=== PATIENT | female | born 2000 | race American Indian/Alaskan Native ===

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

== ENCOUNTER 2022-04-16 08:40 | Inpatient (IN) | payer SELFPAY ==
[2022-04-16 09:54] LABS: Basophils % (Auto) 0.3 % (0.0-1.8); Hematocrit 34.8 % (30.3-42.9); Hemoglobin 12.2 gm/dl (10.1-14.3); Lymphocytes # (Auto) 4.3 K/mm3 (1.2-5.4); Lymphocytes % (Auto) 26.5 % (13.4-35.0); Mean Corpuscular HGB Conc 35 % (30-34); Mean Corpuscular Volume 86 fl (79-97); Monocytes # (Auto) 1.2 K/mm3 (0.0-0.8); Monocytes % (Auto) 7.1 % (0.0-7.3); Platelet Count 334 K/mm3 (140-440); Red Blood Count 4.03 M/mm3 (3.65-5.03); Red Cell Distribution Width 14.2 % (13.2-15.2)
[2022-04-16 09:58] LABS: Alanine Aminotransferase 10 units/L (7-56); Albumin 4.3 g/dL (3.9-5); Blood Urea Nitrogen 9 mg/dL (7-17); Calcium 9.3 mg/dL (8.4-10.2); Hemolysis Index 2
[2022-04-16 09:59] LABS: BUN/Creatinine Ratio 13
[2022-04-16 10:25] LABS: Color,Urine Yellow (Yellow)
[2022-04-16 10:31] LABS: Amorphous Crystals,Urine 1+; Bacteria,Urine 2+ /HPF (Negative); Mucus,Urine 3+ /HPF
[2022-04-16] MEDS ORDERED: SODIUM CHLORIDE 0.9% 1000 ML 1,000 ML IV ONE (10:46)
[2022-04-16] MEDS ORDERED: ONDANSETRON 4 MG/2 ML INJ IV ONE ×2 (10:46→15:34)
[2022-04-16] MEDS ORDERED: MORPHINE 4 MG/1 ML INJ IV ONE (10:46)
--- NOTE | 2022-04-16 11:49 | Cat Scan Report ---
CT ABDOMEN AND PELVIS WITH CONTRAST INDICATION / CLINICAL INFORMATION: abd pain with n/v. TECHNIQUE: Axial CT images were obtained through the abdomen and pelvis after IV contrast. All CT sc ans at this location are performed using CT dose reduction for ALARA by means of automated exposure c ontrol. COMPARISON: CT dated 05/04/2019 FINDINGS: LOWER CHEST: No significant abnormality. LIVER: No significant abnormality. GALLBLADDER: No significant abnormality. BILE DUCTS: No significant abnormality. PANCREAS: No significant abnormality. SPLEEN: No significant abnormality. ADRENALS: No significant abnormality. RIGHT KIDNEY / URETER: No significant abnormality. LEFT KIDNEY / URETER: No significant abnormality. STOMACH / SMALL BOWEL: No significant abnormality. COLON: Inflammatory changes adjacent to the rectum and sigmoid colon are likely reactive from adjacen t pelvic organ inflammation. APPENDIX: No significant abnormality. PERITONEUM: Pelvic peritonitis detailed below. LYMPH NODES: Retroperitoneal and iliac chain lymphadenopathy, for example left periaortic lymph node measures 1.2 cm in short axis on image 73 series 2. AORTA / ARTERIES: No significant abnormality. IVC / VEINS: No significant abnormality. URINARY BLADDER: Inflammatory changes adjacent to the urinary bladder. REPRODUCTIVE ORGANS: Thick walled peripherally enhancing tubular structures in the bilateral adnexa w ith inflammatory stranding and fluid. Fluid demonstrates a thin rim of peripheral enhancement. ADDITIONAL FINDINGS: None. SKELETAL SYSTEM: No significant abnormality. IMPRESSION: 1. Bilateral pyosalpinx with pelvic peritonitis and likely developing tubo-ovarian abscess. 2. Lymphadenopathy is likely reactive. Signer Name: Waldo Yoo MD Signed: 04/16/2022 11:45 AM Workstation Name: [employer]
[2022-04-16] MEDS ORDERED: PIPERACILLIN/TAZOBACTAM 3.375 3.375 GM/50 ML BAG IV ONE (11:58)
--- NOTE | 2022-04-16 14:16 | Ultrasound Report ---
ULTRASOUND PELVIS INDICATION / CLINICAL INFORMATION: pelvic/abd pain r/o tubo-ovarian abscess. TECHNIQUE: Transabdominal and Transvaginal. Duplex Color Doppler used: Yes. COMPARISON: Same day CT FINDINGS: UTERUS: - Appearance: No significant abnormality. - Size (cm): 7.4 x 3.5 x 4.9 - Endometrial Complex (if present): No significant abnormality.. Thickness in cm (if measured) = 0.4 - Mass or cyst: None. - Additional findings: None. RIGHT ADNEXA: 5.0 x 3.2 x 3.7 cm. Normal color Doppler blood flow. Physiologic cyst measures 1.6 cm. LEFT ADNEXA: 5.7 x 3.8 x 3.7 cm Normal color Doppler blood flow. Complex mildly hypoechoic lesion jayesh tered within the left ovary measures 4.3 x 2.2 x 2.5. URINARY BLADDER: No significant abnormality. FREE FLUID: Moderate volume complex free fluid. ADDITIONAL FINDINGS: Bilateral hydrosalpinx better appreciated on CT. IMPRESSION: 1. Bilateral pyosalpinx with pelvic peritonitis. Pelvic peritonitis demonstrates complex septations. 2. Left ovary is enlarged and contains an internally mildly hypoechoic lesion, which in the setting o f pyosalpinx is concerning for tubo-ovarian abscess. Hemorrhagic cyst is another possibility. Signer Name: Waldo Yoo MD Signed: 04/16/2022 2:12 PM Workstation Name: [employer]
--- NOTE | 2022-04-16 14:22 | Emergency Department Report ---
ED Abdominal Pain HPI - General Chief Complaint: Abdominal Pain Stated Complaint: STOMACH PAIN/INDIGESTION Time Seen by Provider: 04/16/22 10:27 Source: patient Mode of arrival: Ambulatory Limitations: No Limitations - History of Present Illness Initial Comments: This is a 22-year-old female nontoxic, well nourished in appearance, no acute signs of distress presents to the ED with c/o of nausea and vomiting and abdominal pain several days. Patient describes vomiting as food content and yellow gastric acid. Patient describes abdominal pain as cramping and aching with level of 8/10 diffuse. Stated has some abdominal distention. Patient denies chest pain, short of breath, fever, hemoptysis, blood in stool, chills, headache, stiff neck, numbness or tingling. Patient denies any diarrhea or constipation. Denies any blood in stool. Patient denies any recent travels. MD Complaint: abdominal pain -: days(s) Location: diffuse Radiation: none Severity: moderate Severity scale (0 -10): 8 Quality: aching Consistency: constant Improves With: nothing Worsens With: nothing Associated Symptoms: nausea, vomiting. denies: diarrhea, fever, chills, constipation, dysuria, hematemesis, hematochezia, melena, hematuria, anorexia, syncope - Related Data Previous Rx's Medication Instructions Recorded Last Taken Type HYDROcodone/APAP 5-325 [[place] 1 - 2 each PO Q4HR PRN #20 tablet 05/05/19 Unknown Rx 5/325] levoFLOXacin [Levaquin] 750 mg PO QDAY #7 tablet 05/12/19 Unknown Rx levoFLOXacin [Levaquin] 750 mg PO QDAY 7 Days #7 tablet 05/12/19 Unknown Rx Allergies Allergy/AdvReac Type Severity Reaction Status Date / Time Latex, Natural Rubber Allergy Hives Verified 04/16/22 08:43 vancomycin AdvReac Hives Verified 04/16/22 08:43 ED Review of Systems ROS: Stated complaint: STOMACH PAIN/INDIGESTION Other details as noted in HPI Constitutional: denies: chills, fever Eyes: denies: eye pain, eye discharge, vision change ENT: denies: ear pain, throat pain Respiratory: denies: cough, shortness of breath, wheezing Cardiovascular: denies: chest pain, palpitations Endocrine: no symptoms reported Gastrointestinal: abdominal pain, nausea, vomiting. denies: diarrhea, constipation, hematemesis, melena, hematochezia Genitourinary: denies: urgency, dysuria, discharge Musculoskeletal: denies: back pain, joint swelling, arthralgia Skin: denies: rash, lesions Neurological: denies: headache, weakness, paresthesias Psychiatric: denies: anxiety, depression Hematological/Lymphatic: denies: easy bleeding, easy bruising ED Past Medical Hx - Past Medical History Previous Medical History?: No - Social History Smoking Status: Current Every Day Smoker Substance Use Type: Marijuana - Medications Home Medications: Home Medications Medication Instructions Recorded Confirmed Last Taken Type HYDROcodone/APAP 5-325 [[place] 1 - 2 each PO Q4HR PRN #20 tablet 05/05/19 Unknown Rx 5/325] levoFLOXacin [Levaquin] 750 mg PO QDAY #7 tablet 05/12/19 Unknown Rx levoFLOXacin [Levaquin] 750 mg PO QDAY 7 Days #7 tablet 05/12/19 Unknown Rx ED Physical Exam - General Limitations: No Limitations General appearance: alert, in no apparent distress - Head Head exam: Present: atraumatic, normocephalic - Eye Eye exam: Present: normal appearance - Neck Neck exam: Present: normal inspection, full ROM. Absent: lymphadenopathy - Respiratory Respiratory exam: Present: normal lung sounds bilaterally. Absent: respiratory distress, wheezes, rales, rhonchi, stridor, chest wall tenderness, accessory muscle use, decreased breath sounds, prolonged expiratory - Cardiovascular Cardiovascular Exam: Present: normal rhythm, tachycardia, normal heart sounds. Absent: irregular rhythm, systolic murmur, diastolic murmur, rubs, gallop - GI/Abdominal GI/Abdominal exam: Present: distended, tenderness (diffuse), normal bowel sounds. Absent: guarding, rebound, rigid, diminished bowel sounds - Extremities Exam Extremities exam: Present: full ROM - Back Exam Back exam: Present: normal inspection, full ROM. Absent: tenderness, CVA tenderness (R), CVA tenderness (L), muscle spasm, paraspinal tenderness, vertebral tenderness, rash noted - Neurological Exam Neurological exam: Present: alert, oriented X3, normal gait - Psychiatric Psychiatric exam: Present: normal affect, normal mood - Skin Skin exam: Present: warm, dry, intact, normal color. Absent: rash ED Course Vital Signs 04/16/22 08:46 Temperature 99.0 F Pulse Rate 111 H Respiratory 20 Rate Blood Pressure 122/80 O2 Sat by Pulse 98 Oximetry - Reevaluation(s) Reevaluation #1: 04/16/22 14:22 Patient is speaking in full sentences with no signs of distress noted. - Consultations Consultation #1: 04/16/22 14:28 Patient has been consulted with Dr. Mccarty (OBGYN) about patient history, physical exam, and labs/imaging studies and accepts patient to services with Rocephin, Azith, and clinda to be added as antibiotics and admit to mother/baby unit. ED Medical Decision Making - Lab Data Result diagrams: 04/16/22 09:20 04/16/22 09:20 Lab Results 04/16/22 04/16/22 04/16/22 Range/Units 09:08 09:20 09:20 WBC 16.4 H (4.5-11.0) K/mm3 RBC 4.03 (3.65-5.03) M/mm3 Hgb 12.2 (10.1-14.3) gm/dl Hct 34.8 (30.3-42.9) % MCV 86 (79-97) fl MCH 30 (28-32) pg MCHC 35 H (30-34) % RDW 14.2 (13.2-15.2) % Plt Count 334 (140-440) K/mm3 Lymph % (Auto) 26.5 (13.4-35.0) % [place] % (Auto) 7.1 (0.0-7.3) % Eos % (Auto) 0.0 (0.0-4.3) % Baso % (Auto) 0.3 (0.0-1.8) % Lymph # (Auto) 4.3 (1.2-5.4) K/mm3 [place] # (Auto) 1.2 H (0.0-0.8) K/mm3 Eos # (Auto) 0.0 (0.0-0.4) K/mm3 Baso # (Auto) 0.0 (0.0-0.1) K/mm3 Seg Neutrophils % 66.1 (40.0-70.0) % Seg Neutrophils # 10.8 H (1.8-7.7) K/mm3 Sodium 135 L (137-145) mmol/L Potassium 3.4 L (3.6-5.0) mmol/L Chloride 98.9 (98-107) mmol/L Carbon Dioxide 20 L (22-30) mmol/L Anion Gap 20 mmol/L BUN 9 (7-17) mg/dL Creatinine 0.7 (0.6-1.2) mg/dL Estimated GFR > 60 ml/min BUN/Creatinine Ratio 13 % Glucose 166 H (65-100) mg/dL Calcium 9.3 (8.4-10.2) mg/dL Total Bilirubin 1.20 (0.1-1.2) mg/dL AST 15 (5-40) units/L ALT 10 (7-56) units/L Alkaline Phosphatase 78 (35-129) units/L Total Protein 7.8 (6.3-8.2) g/dL Albumin 4.3 (3.9-5) g/dL Albumin/Globulin Ratio 1.2 % Lipase (13-60) units/L HCG, Qual (Negative) Urine Color Yellow (Yellow) Urine Turbidity Turbid (Clear) Specific [place] (Man) 1.027 (1.003-1.030) Ur Protein (Man) 1+ (Negative) mg/dL Ur Ketones (Man) 5mg/dl (Negative) Ur Nitrite (Man) Negative (Negative) Urine Bilirubin (Man) Negative (Negative) Urine Ictotest Not Reportable Leukocyte Esterase (Man) Negative (Negative) Urine WBC (Auto) 2.0 (0.0-6.0) /HPF Urine RBC (Auto) 2.0 (0.0-6.0) /HPF U Epithel Cells (Auto) 1.0 (0-13.0) /HPF Urine Bacteria (Auto) 2+ (Negative) /HPF Urine RBC (Manual) Negative (Negative) Amorphous Crystals 1+ Urine Mucus 3+ /HPF 04/16/22 04/16/22 Range/Units 09:20 10:47 WBC (4.5-11.0) K/mm3 RBC (3.65-5.03) M/mm3 Hgb (10.1-14.3) gm/dl Hct (30.3-42.9) % MCV (79-97) fl MCH (28-32) pg MCHC (30-34) % RDW (13.2-15.2) % Plt Count (140-440) K/mm3 Lymph % (Auto) (13.4-35.0) % [place] % (Auto) (0.0-7.3) % Eos % (Auto) (0.0-4.3) % Baso % (Auto) (0.0-1.8) % Lymph # (Auto) (1.2-5.4) K/mm3 [place] # (Auto) (0.0-0.8) K/mm3 Eos # (Auto) (0.0-0.4) K/mm3 Baso # (Auto) (0.0-0.1) K/mm3 Seg Neutrophils % (40.0-70.0) % Seg Neutrophils # (1.8-7.7) K/mm3 Sodium (137-145) mmol/L Potassium (3.6-5.0) mmol/L Chloride (98-107) mmol/L Carbon Dioxide (22-30) mmol/L Anion Gap mmol/L BUN (7-17) mg/dL Creatinine (0.6-1.2) mg/dL Estimated GFR ml/min BUN/Creatinine Ratio % Glucose (65-100) mg/dL Calcium (8.4-10.2) mg/dL Total Bilirubin (0.1-1.2) mg/dL AST (5-40) units/L ALT (7-56) units/L Alkaline Phosphatase (35-129) units/L Total Protein (6.3-8.2) g/dL Albumin (3.9-5) g/dL Albumin/Globulin Ratio % Lipase 16 (13-60) units/L HCG, Qual Negative (Negative) Urine Color (Yellow) Urine Turbidity (Clear) Specific [place] (Man) (1.003-1.030) Ur Protein (Man) (Negative) mg/dL Ur Ketones (Man) (Negative) Ur Nitrite (Man) (Negative) Urine Bilirubin (Man) (Negative) Urine Ictotest Leukocyte Esterase (Man) (Negative) Urine WBC (Auto) (0.0-6.0) /HPF Urine RBC (Auto) (0.0-6.0) /HPF U Epithel Cells (Auto) (0-13.0) /HPF Urine Bacteria (Auto) (Negative) /HPF Urine RBC (Manual) (Negative) Amorphous Crystals Urine Mucus /HPF - Radiology Data [facility] [address] [place] [address] Cat Scan Report Signed Patient: WESLY FRIEND MR#: [id number] : 2000 Acct:[id number] Age/Sex: 22 / F ADM Date: 04/16/22 Loc: ED Attending Dr: Ordering Physician: JESSICA LI NP Date of Service: 04/16/22 Procedure(s): CT abdomen pelvis w con Accession Number(s): [id number] cc: JESSICA LI NP CT ABDOMEN AND PELVIS WITH CONTRAST INDICATION / CLINICAL INFORMATION: abd pain with n/v. TECHNIQUE: Axial CT images were obtained through the abdomen and pelvis after IV contrast. All CT scans at this location are performed using CT dose reduction for DAVID by means of automated exposure control. COMPARISON: CT dated 05/04/2019 FINDINGS: LOWER CHEST: No significant abnormality. LIVER: No significant abnormality. GALLBLADDER: No significant abnormality. BILE DUCTS: No significant abnormality. PANCREAS: No significant abnormality. SPLEEN: No significant abnormality. ADRENALS: No significant abnormality. RIGHT KIDNEY / URETER: No significant abnormality. LEFT KIDNEY / URETER: No significant abnormality. STOMACH / SMALL BOWEL: No significant abnormality. COLON: Inflammatory changes adjacent to the rectum and sigmoid colon are likely reactive from adjacent pelvic organ inflammation. APPENDIX: No significant abnormality. PERITONEUM: Pelvic peritonitis detailed below. LYMPH NODES: Retroperitoneal and iliac chain lymphadenopathy, for example left periaortic lymph node measures 1.2 cm in short axis on image 73 series 2. AORTA / ARTERIES: No significant abnormality. IVC / VEINS: No significant abnormality. URINARY BLADDER: Inflammatory changes adjacent to the urinary bladder. REPRODUCTIVE ORGANS: Thick walled peripherally enhancing tubular structures in the bilateral adnexa with inflammatory stranding and fluid. Fluid demonstrates a thin rim of per ipheral enhancement. ADDITIONAL FINDINGS: None. SKELETAL SYSTEM: No significant abnormality. IMPRESSION: 1. Bilateral pyosalpinx with pelvic peritonitis and likely developing tubo-ov ho abscess. 2. Lymphadenopathy is likely reactive. Signer Name: Pardeep Vázquez MD Signed: 04/16/2022 11:45 AM Workstation Name: [id number] Transcribed By: RHONDA Dictated By: PARDEEP VÁZQUEZ MD Electronically Authenticated By: PARDEEP VÁZQUEZ MD Signed Date/Time: 04/16/22 1145 DD/ 1136 TD/TT: [facility] [address] [place] [address] Ultrasound Report Signed Patient: WESLY FRIEND MR#: [id number] : 2000 Acct:[id number] Age/Sex: 22 / F ADM Date: 04/16/22 Loc: ED Attending Dr: Ordering Physician: JESSICA LI NP Date of Service: 04/16/22 Procedure(s): US transvaginal Accession Number(s): [id number] cc: JESSICA LI NP ULTRASOUND PELVIS INDICATION / CLINICAL INFORMATION: pelvic/abd pain r/o tubo-ovarian abscess. TECHNIQUE: Transabdominal and Transvaginal. Duplex Color Doppler used: Yes. COMPARISON: Same day CT FINDINGS: UTERUS: - Appearance: No significant abnormality. - Size (cm): 7.4 x 3.5 x 4.9 - Endometrial Complex (if present): No significant abnormality.. Thickness in cm (if measured) = 0.4 - Mass or cyst: None. - Additional findings: None. RIGHT ADNEXA: 5.0 x 3.2 x 3.7 cm. Normal color Doppler blood flow. Physiologic cyst measures 1.6 cm. LEFT ADNEXA: 5.7 x 3.8 x 3.7 cm Normal color Doppler blood flow. Complex mildly hypoechoic lesion centered within the left ovary measures 4.3 x 2.2 x 2.5. URINARY BLADDER: No significant abnormality. FREE FLUID: Moderate volume complex free fluid. ADDITIONAL FINDINGS: Bilateral hydrosalpinx better appreciated on CT. IMPRESSION: 1. Bilateral pyosalpinx with pelvic peritonitis. Pelvic peritonitis demonstrates complex septations. 2. Left ovary is enlarged and contains an internally mildly hypoechoic lesion, which in the setting of pyosalpinx is concerning for tubo-ovarian abscess. Hemorrhagic cyst is another possibility. Signer Name: Pardeep Vázquez MD Signed: 04/16/2022 2:12 PM Workstation Name: [id number] Transcribed By: RHONDA Dictated By: PARDEEP VÁZQUEZ MD Electronically Authenticated By: PARDEEP VÁZQUEZ MD Signed Date/Time: 04/16/22 1412 DD/ 1407 TD/TT: [facility] [address] [place] [address] Ultrasound Report Signed Patient: WESLY FRIEND MR#: [id number] : 2000 Acct:[id number] Age/Sex: 22 / F ADM Date: 04/16/22 Loc: ED Attending Dr: Ordering Physician: JESSICA LI NP Date of Service: 04/16/22 Procedure(s): US pelvic complete Accession Number(s): [id number] cc: JESSICA LI NP ULTRASOUND PELVIS INDICATION / CLINICAL INFORMATION: pelvic/abd pain r/o tubo-ovarian abscess. TECHNIQUE: Transabdominal and Transvaginal. Duplex Color Doppler used: Yes. COMPARISON: Same day CT FINDINGS: UTERUS: - Appearance: No significant abnormality. - Size (cm): 7.4 x 3.5 x 4.9 - Endometrial Complex (if present): No significant abnormality.. Thickness in cm (if measured) = 0.4 - Mass or cyst: None. - Additional findings: None. RIGHT ADNEXA: 5.0 x 3.2 x 3.7 cm. Normal color Doppler blood flow. Physiologic cyst measures 1.6 cm. LEFT ADNEXA: 5.7 x 3.8 x 3.7 cm Normal color Doppler blood flow. Complex mildly hypoechoic lesion centered within the left ovary measures 4.3 x 2.2 x 2.5. URINARY BLADDER: No significant abnormality. FREE FLUID: Moderate volume complex free fluid. ADDITIONAL FINDINGS: Bilateral hydrosalpinx better appreciated on CT. IMPRESSION: 1. Bilateral pyosalpinx with pelvic peritonitis. Pelvic peritonitis demonstrates complex septations. 2. Left ovary is enlarged and contains an internally mildly hypoechoic lesion, which in the setting of pyosalpinx is concerning for tubo-ovarian abscess. Hemorrhagic cyst is another possibility. Signer Name: Pardeep Vázquez MD Signed: 04/16/2022 2:12 PM Workstation Name: [id number] Transcribed By: RHONDA Dictated By: PARDEEP VÁZQUEZ MD Electronically Authenticated By: PARDEEP VÁZQUEZ MD Signed Date/Time: 04/16/22 1412 DD/ 06 TD/TT: - Medical Decision Making 22-year-old female that presents with tubo-ovarian abscess. Patient is stable and was examined by me. Labs has been obtained. Patient is notified of the imaging results with no questions noted by the patient. Patient placed on n.p.o. at this time. Patient admitted to mother-baby unit. IV antibiotics initiated. At time of admission and transfer, the patient does not seem toxic or ill in appearance. No acute signs of distress noted. Patient admission to discharge treatment plan of care. No further questions noted by the patient. Critical care attestation.: If time is entered above; I have spent that time in minutes in the direct care of this critically ill patient, excluding procedure time. ED Disposition Clinical Impression: Tubo-ovarian abscess, Peritonitis, Pelvic mass Disposition: ADMITTED INPATIENT Is pt being admited?: Yes Condition: Stable Instructions: Abdominal Pain (ED) Time of Disposition: 14:35
[2022-04-16] MEDS ORDERED: AZITHROMYCIN/NS 500 MG/250 ML 500 MG/250 ML BAG IV ONE (14:34)
[2022-04-16] MEDS ORDERED: HYDROmorphone 1 MG/1 ML INJ IV ONE (15:22)
--- NOTE | 2022-04-16 15:35 | Event Note ---
Date: 04/16/22 Alerted to patient about bilateral lower extremity TOA. Primary service/[employer] will attempt conservative care with IV antibiotics. If this fails, then may require percutaneous drainage.
[2022-04-16] MEDS ORDERED: METOCLOPRAMIDE 10 MG/2 ML INJ IV PRN (19:18)
[2022-04-16] MEDS ORDERED: NALOXONE 0.4 MG/1 ML INJ IV PRN ×2 (19:18→20:16)
[2022-04-16] MEDS ORDERED: HYDROcodone/ACETAMINOPHEN 5-325 MG TAB PO PRN ×2 (19:18→20:16)
[2022-04-16] MEDS ORDERED: IBUPROFEN 800 MG TAB PO PRN ×2 (19:18→20:16)
[2022-04-16] MEDS ORDERED: ACETAMINOPHEN 325 MG TAB PO PRN ×2 (19:18→20:16)
[2022-04-16] MEDS ORDERED: AZITHROMYCIN 250 MG TAB PO ONE (19:35)
--- NOTE | 2022-04-16 19:46 | History and Physical Report ---
History of Present Illness Date of examination: 04/16/22 Date of admission: 04/16/22 Chief complaint: pelvic pain x 1wk History of present illness: Pelvic and lower abd pains x 1wk. Last period was 2 weeks ago. Had exploratory laparoscopy in 2019 for tubeoavrian abscess. 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 BOARD LAYER History: other (PID) - Obstetrical History : 0 Para: 0 Medications and Allergies Allergies Allergy/AdvReac Type Severity Reaction Status Date / Time Latex, Natural Rubber Allergy Hives Verified 04/16/22 08:43 vancomycin AdvReac Hives Verified 04/16/22 08:43 Home Medications Medication Instructions Recorded Confirmed Last Taken Type HYDROcodone/APAP 5-325 [[place] 1 - 2 each PO Q4HR PRN #20 tablet 05/05/19 U nknown Rx 5/325] levoFLOXacin [Levaquin] 750 mg PO QDAY #7 tablet 05/12/19 Unknown Rx levoFLOXacin [Levaquin] 750 mg PO QDAY 7 Days #7 tablet 05/12/19 Unknown Rx Active Meds: Active Medications Acetaminophen (Acetaminophen 325 Mg Tab) 650 mg PO Q4H PRN PRN Reason: Pain, Mild (1-3) Hydrocodone Bitart/Acetaminophen (Hydrocodone/Acetaminophen 5-325 Mg Tab) 2 each PO Q6H PRN PRN Reason: Pain, Moderate (4-6) Azithromycin (Azithromycin 250 Mg Tab) 2,000 mg PO ONCE ONE; Protocol Stop: 04/16/22 19:36 Clindamycin HCl (Cleocin 900 Mg/50 Ml) 900 mg in 50 mls @ 100 mls/hr IV Q8H SANTI; Protocol Ibuprofen (Ibuprofen 800 Mg Tab) 800 mg PO Q8H PRN PRN Reason: Pain, Moderate (4-6) Metoclopramide HCl (Metoclopramide 10 Mg/2 Ml Inj) 10 mg IV Q6H PRN PRN Reason: Nausea And Vomiting Morphine Sulfate (Morphine 2 Mg/1 Ml Inj) 2 mg IV Q4H PRN PRN Reason: Pain, Moderate (4-6) Naloxone HCl (Naloxone 0.4 Mg/1 Ml Inj) 0.1 mg IV Q2MIN PRN PRN Reason: Res Rate </= 8 or 02 SAT < 92% Review of Systems All systems: negative Genitourinary: pelvic pain - Vital Signs Vital signs: Vital Signs Temp Pulse Resp BP Pulse Ox 99.0 F 111 H 20 122/80 98 04/16/22 08:46 04/16/22 08:46 04/16/22 08:46 04/16/22 08:46 04/16/22 08:46 Temp Pulse Resp BP Pulse Ox 98.3 F 92 H 19 107/60 100 04/16/22 10:07 04/16/22 18:31 04/16/22 18:31 04/16/22 18:31 04/16/22 10:25 - Physical Exam Lungs: Positive: Normal air movement Abdomen: Positive: tenderness, guarding Genitourinary (Female): Positive: other (Ultrasound exam found tubal disiease.) Uterus: Positive: normal size Extremities: Positive: normal Deep Tendon Reflex Grade: Normal +2 Results Result Diagrams: 04/16/22 09:20 04/16/22 09:20 Abnormal lab results 04/16/22 04/16/22 Range/Units 09:20 09:20 WBC 16.4 H (4.5-11.0) K/mm3 MCHC 35 H (30-34) % [place] # (Auto) 1.2 H (0.0-0.8) K/mm3 Seg Neutrophils # 10.8 H (1.8-7.7) K/mm3 Sodium 135 L (137-145) mmol/L Potassium 3.4 L (3.6-5.0) mmol/L Carbon Dioxide 20 L (22-30) mmol/L Glucose 166 H (65-100) mg/dL All other labs normal. Assessment and Plan - Patient Problems (1) Tubo-ovarian abscess Current Visit: Yes Status: Acute Plan to address problem: Admitted for antibiotics. Interventional radiological intervention/ surgical exploration are under consideration depnding on response to antibiotics rx.
[2022-04-16] MEDS ORDERED: AZITHROMYCIN 1 GM ORAL PWDR PACKET PO SCH (20:00)
[2022-04-16] MEDS ORDERED: MORPHINE 4 MG/1 ML INJ IV PRN (20:16)
[2022-04-17] MEDS: MORPHINE 2 MG/1 ML INJ IV PRN ×3 (02:44→11:04)
[2022-04-17 04:24] LABS: Hematocrit 35.3 % (30.3-42.9); Hemoglobin 11.8 gm/dl (10.1-14.3)
--- NOTE | 2022-04-17 08:28 | Progress Note ---
Assessment and Plan - Patient Problems (1) Tubo-ovarian abscess Current Visit: Yes Status: Acute Plan to address problem: Antibiotic rx to continue. Subjective Date of service: 04/17/22 Principal diagnosis: Pelvic infection Interval history: No new complaints. On antibiotics. Objective - Constitutional Vitals: Vital Signs - 12hr 04/16/22 04/16/22 04/16/22 20:31 20:41 20:51 Temperature Pulse Rate 95 H 97 H 97 H Respiratory 19 18 18 Rate Blood Pressure 129/70 129/70 123/62 Blood Pressure [Left] O2 Sat by Pulse Oximetry 04/16/22 04/16/22 04/16/22 21:01 21:11 21:21 Temperature Pulse Rate 96 H 95 H 98 H Respiratory 28 H 17 17 Rate Blood Pressure 129/61 129/61 121/60 Blood Pressure [Left] O2 Sat by Pulse Oximetry 04/16/22 04/16/22 04/16/22 21:30 21:40 21:45 Temperature 98.4 F Pulse Rate 95 H 94 H 78 Respiratory 18 16 18 Rate Blood Pressure 129/61 121/60 Blood Pressure 115/72 [Left] O2 Sat by Pulse 98 Oximetry 04/16/22 04/16/22 04/17/22 21:46 22:23 00:41 Temperature 99.1 F Pulse Rate 94 H 70 94 H Respiratory 16 20 Rate Blood Pressure 101/58 Blood Pressure 113/75 [Left] O2 Sat by Pulse 99 98 98 Oximetry 04/17/22 04/17/22 04/17/22 02:44 03:14 04:47 Temperature 98.3 F Pulse Rate 111 H Respiratory 22 18 20 Rate Blood Pressure 126/83 Blood Pressure [Left] O2 Sat by Pulse 98 Oximetry 04/17/22 04/17/22 06:23 06:53 Temperature Pulse Rate Respiratory 20 18 Rate Blood Pressure Blood Pressure [Left] O2 Sat by Pulse Oximetry General appearance: Present: no acute distress - Respiratory Respiratory effort: normal Extremities: pulses intact, No edema, normal color, Full ROM - Genitourinary Female genitourinary: deferred - Integumentary Integumentary: clear, warm, dry - Labs CBC & Chem 7: 04/17/22 03:56 04/16/22 09:20 Labs: Abnormal lab results 04/16/22 04/16/22 Range/Units 09:20 09:20 WBC 16.4 H (4.5-11.0) K/mm3 MCHC 35 H (30-34) % [place] # (Auto) 1.2 H (0.0-0.8) K/mm3 Seg Neutrophils # 10.8 H (1.8-7.7) K/mm3 Sodium 135 L (137-145) mmol/L Potassium 3.4 L (3.6-5.0) mmol/L Carbon Dioxide 20 L (22-30) mmol/L Glucose 166 H (65-100) mg/dL Medications & Allergies - Medications Allergies/Adverse Reactions: Allergies Latex, Natural Rubber Allergy (Verified 04/16/22 08:43) Hives vancomycin Adverse Reaction (Verified 04/16/22 08:43) Hives Home Medications: Home Medications Medication Instructions Recorded Confirmed Last Taken Type HYDROcodone/APAP 5-325 [[place] 1 - 2 each PO Q4HR PRN #20 tablet 05/05/19 04/16/22 Unknown Rx 5/325] levoFLOXacin [Levaquin] 750 mg PO QDAY #7 tablet 05/12/19 04/16/22 Unknown Rx levoFLOXacin [Levaquin] 750 mg PO QDAY 7 Days #7 tablet 05/12/19 04/16/22 Unknown Rx Active Medications: Generic Name Dose Route Start Last Admin Trade Name Noéq PRN Reason Stop Dose Admin Clindamycin HCl 900 mg in 50 mls @ 100 mls/hr 04/16/22 20:00 04/17/22 06:12 Cleocin 900 Mg/50 Ml IV 100 mls/hr Q8H SANTI Administration Protocol Metoclopramide HCl 10 mg 04/16/22 19:18 04/17/22 02:44 Metoclopramide 10 Mg/2 Ml Inj IV 10 mg Q6H PRN Administration Nausea And Vomiting Morphine Sulfate 2 mg 04/16/22 19:18 04/17/22 06:23 Morphine 2 Mg/1 Ml Inj IV 2 mg Q4H PRN Administration Pain, Moderate (4-6)
[2022-04-17] MEDS ORDERED: ACETAMINOPHEN 325 MG TAB PO PRN (20:36)
[2022-04-18 12:10] VITALS: BP 138/86
--- NOTE | 2022-04-18 12:35 | Progress Note ---
Assessment and Plan - Patient Problems (1) Tubo-ovarian abscess Current Visit: Yes Status: Acute Plan to address problem: Improving with antibiotics. To continue antibiotic course as an outpatient. Patient told to follow up with own MU[employer] INST[employer]ER in 1week or prn for a reevaluation, including repeat pelvic imaging. Tuboovarian infections may compromise the the structures involved. Need for compliance was stressed. Keflex, Clindamycin and doxycycline were called into her [facility] pharmacy [phone] in [facility]. Subjective Date of service: 04/18/22 Principal diagnosis: Pelvic infection Interval history: reported feeling a lot better today. Had no need for narcotic pain meds in almost a day. Wants to eat as well as go home. Objective - Constitutional Vitals: Vital Signs - 12hr 04/18/22 04/18/22 04/18/22 02:17 02:36 05:08 Temperature 99.7 F H Pulse Rate 98 H Respiratory 20 Rate Blood Pressure 88/52 100/61 130/70 Blood Pressure [Left] O2 Sat by Pulse 97 Oximetry 04/18/22 04/18/22 04/18/22 07:55 08:52 11:37 Temperature 99.2 F 98 F Pulse Rate 97 H 95 H Respiratory 18 20 Rate Blood Pressure Blood Pressure 125/67 138/86 [Left] O2 Sat by Pulse 98 Oximetry General appearance: Present: no acute distress - Respiratory Respiratory effort: normal Extremities: pulses intact, No edema, normal color, Full ROM - Gastrointestinal General gastrointestinal: Present: soft - Genitourinary Female genitourinary: deferred - Labs CBC & Chem 7: 04/17/22 03:56 04/16/22 09:20 Medications & Allergies - Medications Allergies/Adverse Reactions: Allergies Latex, Natural Rubber Allergy (Verified 04/16/22 08:43) Hives vancomycin Adverse Reaction (Verified 04/16/22 08:43) Hives Home Medications: Home Medications Medication Instructions Recorded Confirmed Last Taken Type HYDROcodone/APAP 5-325 [Remer 1 - 2 each PO Q4HR PRN #20 tablet 05/05/19 04/16/22 Unknown Rx 5/325] levoFLOXacin [Levaquin] 750 mg PO QDAY #7 tablet 05/12/19 04/16/22 Unknown Rx levoFLOXacin [Levaquin] 750 mg PO QDAY 7 Days #7 tablet 05/12/19 04/16/22 Unknown Rx Active Medications: Generic Name Dose Route Start Last Admin Trade Name Freq PRN Reason Stop Dose Admin Acetaminophen 650 mg 04/17/22 20:36 04/17/22 20:52 Acetaminophen 325 Mg Tab PO 650 mg Q4H PRN Administration Pain, Mild (1-3) Clindamycin HCl 900 mg in 50 mls @ 100 mls/hr 04/16/22 20:00 04/18/22 05:42 Cleocin 900 Mg/50 Ml IV 100 mls/hr Q8H SANTI Administration Protocol Metoclopramide HCl 10 mg 04/16/22 19:18 04/17/22 02:44 Metoclopramide 10 Mg/2 Ml Inj IV 10 mg Q6H PRN Administration Nausea And Vomiting Morphine Sulfate 2 mg 04/16/22 19:18 04/17/22 11:04 Morphine 2 Mg/1 Ml Inj IV 2 mg Q4H PRN Administration Pain, Moderate (4-6)
--- NOTE | 2022-04-18 12:45 | Discharge Summary ---
Providers - Providers Date of Admission: 04/16/22 20:16 Date of discharge: 04/18/22 Attending physician: DAVIS PENALOZA MD Primary care physician: MELLO MCGRAW MD Hospitalization Reason for admission: other (Tubovarian abscess.) Condition at discharge: Fair Disposition: 01 HOME / SELF CARE / HOMELESS - Discharge Diagnoses (1) Tubo-ovarian abscess Status: Acute Plan - Provider Discharge Summary Activity: routine, no sex for 6 weeks Diet: routine Instructions: other (Improving with antibiotics. To continue antibiotic course as an outpatient. Patient told to follow up with own [employer] in 1week or prn for a reevaluation, including repeat pelvic imaging. Tuboovarian infections may compromise the the structures involved. Need for compliance was stressed. Keflex, Clindam) Additional instructions: [] Smoking cessation referral if applicable(refer to patient education folder for contact #) [] Refer to [facility] Booklet Call your doctor immediately for: * Improving with antibiotics. To continue antibiotic course as an outpatient. Patient told to follow up with own [employer]ER in 1week or prn for a reevaluation, including repeat pelvic imaging. Tuboovarian infections may compromise the the structures involved. Need for compliance was stressed. Keflex, Clindamycin and doxycycline were called into her [facility] pharmacy [phone] in [facility]. - Follow up plan Follow up: MELLO MCGRAW MD [Primary Care Provider] - 7 Days
== END 2022-04-18 14:10 | disposition home or self-care (01) | DRG 757 ==
LOC: ED 08:40 → OB 20:16
PROVIDERS: ADMIT Obstetrics & Gynecology; ATTEND Obstetrics & Gynecology
DX: N70.93 Salpingitis and oophoritis, unspecified (principal); K65.9 Peritonitis, unspecified; Z20.822 Contact with and (suspected) exposure to COVID-19; Z91.048 Other nonmedicinal substance allergy status; Z91.040 Latex allergy status
CPT/HCPCS: 36415; 74177; 76830; 76856; 80053; 81001; 83690; 84703; 85014; 85018; 85025; 87040; 87086; G0378; J7502; J0456; J0696; J1170; J2270; J2405; J2543; J2765; J7030; Q9967; U0003